=== PATIENT | male | born 1965 | race Caucasian/White ===

== ENCOUNTER 2016-10-09 08:26 | Inpatient (IN) | payer OTHER ==
[2016-10-09 10:26] VITALS: BMI 24.3
--- NOTE | 2016-10-09 13:42 | HP ---
CIWA Score - CIWA Score Nausea/Vomitin-Mild Nausea/No Vomiting Muscle Tremors: 4-Moderate,w/Arms Extend Anxiety: 4-Mod. Anxious/Guarded Agitation: 4-Moderately Restless Paroxysmal Sweats: 3 Orientation: 0-Oriented Tacttile Disturbances: 0-None Auditory Disturbances: 0-None Visual Disturbances: 0-None Headache: 1-Very Mild CIWA-Ar Total Score: 17 Admission ROS BHS - HPI Chief Complaint: I need to get cleaned. Allergies/Adverse Reactions: Allergies Allergy/AdvReac Type Severity Reaction Status Date / Time penicillin G Allergy Severe Rash Verified 10/09/16 10:10 History of Present Illness: pt is a 51yr old male with a history of alcohol and crack /cocaine dependence seeking detox for treatment. Exam Limitations: No Limitations - Ebola screening Have you traveled outside of the country in the last 21 days: No Have you had contact with anyone from an Ebola affected area: No Have you been sick,other than usual withdrawal symptoms: No - Review of Systems Constitutional: Chills, Diaphoresis, Loss of Appetite, Night Sweats, Unintentional Wgt. Loss EENT: reports: No Symptoms Reported, Tearing, Nose Congestion Respiratory: reports: Cough Cardiac: reports: No Symptoms Reported, Syncope GI: reports: Diarrhea, Nausea, Poor Appetite, Poor Fluid Intake, Vomiting : reports: No Symptoms Reported Musculoskeletal: reports: Back Pain, Joint Pain Integumentary: reports: Flushing, Sweating Neuro: reports: Headache, Tingling, Tremors Endocrine: reports: Excessive Sweating, Flushing, Intolerance to Cold, Intolerance to Heat Hematology: reports: No Symptoms Reported Psychiatric: reports: Judgement Intact, Mood/Affect Appropiate, Orientated x3, Agitated, Anxious Other Systems: Reviewed and Negative Patient History - Patient Medical History Hx Anemia: No Hx Asthma: Yes (albuterol) Hx Chronic Obstructive Pulmonary Disease (COPD): No Hx Cancer: No Hx Cardiac Disorders: No Hx Congestive Heart Failure: No Hx Hypertension: Yes (non compliant with meds.) Hx Hypercholesterolemia: No Hx Pacemaker: No HX Cerebrovascular Accident: No Hx Seizures: No Hx Dementia: No Hx Diabetes: No Hx Gastrointestinal Disorders: No Hx Liver Disease: No Hx Genitourinary Disorders: No Hx Sexually Transmitted Disorders: No Hx Renal Disease (ESRD): No Hx Thyroid Disease: No Hx Human Immunodeficiency Virus (HIV): No (NEGATIVE LAST 2012) Hx Hepatitis C: No (negative) Hx Depression: Yes Hx Suicide Attempt: No Hx Bipolar Disorder: No Hx Schizophrenia: No - Patient Surgical History Past Surgical History: No Hx Neurologic Surgery: No Hx Cataract Extraction: No Hx Cardiac Surgery: No Hx Lung Surgery: No Hx Breast Surgery: No Hx Breast Biopsy: No Hx Abdominal Surgery: No Hx Appendectomy: No Hx Cholecystectomy: No Hx Genitourinary Surgery: No Hx Section: No Hx Orthopedic Surgery: No Other Surgical History: skin tear to right knee 2weeks ago stitches were placed; not sure which hosp Anesthesia Reaction: No - PPD History Previous Implant?: Yes Documented Results: Negative w/o proof Implanted On Prior R Admission?: Yes Date: 09/20/15 PPD to be Administered?: Yes - Reproductive History Patient is a Female of Child Bearing Age (11 -55 yrs old): No - Smoking Cessation Smoking history: Current every day smoker Have you smoked in the past 12 months: Yes Aproximately how many cigarettes per day: 20 Hx Chewing Tobacco Use: No Initiated information on smoking cessation: Yes 'Breaking Loose' booklet given: 10/09/16 - Substance & Tx. History Hx Alcohol Use: No Substance Use Type: Alcohol, Cocaine Hx Substance Use Treatment: Yes - Substances Abused Alcohol Route: Oral Frequency: Daily Amount used: 1 qt vodka Age of first use: 8 Date of Last Use: 10/08/16 Crack Route: Smoking Frequency: 1-2 times per week Amount used: $20 Age of first use: 17 Date of Last Use: 10/07/16 Family Disease History - Family Disease History Family Disease History: Heart Disease: Father, Mother Admission Physical Exam [facility] - Vital Signs Vital Signs: Vital Signs - 24 hr 10/09/16 10:09 Temperature 97.4 F L Pulse Rate 122 H Respiratory 20 Rate Blood Pressure 173/86 - Physical General Appearance: Yes: Appropriately Dressed, Moderate Distress, Tremorous, Irritable, Sweating, Anxious HEENTM: Yes: Hearing grossly Normal, Normal ENT Inspection, Nasal Congestion, Rhinorrhea Respiratory: Yes: Lungs Clear, Normal Breath Sounds, No Respiratory Distress Neck: Yes: No masses,lesions,Nodules Breast: Yes: Within Normal Limits, Axillae without masses, No Discharge, Nipple discharge noted Cardiology: Yes: Regular Rhythm, Regular Rate, S1, S2 Abdominal: Yes: Normal Bowel Sounds, Non Tender, Soft Genitourinary: Yes: Within Normal Limits Back: Yes: Normal Inspection Musculoskeletal: Yes: full range of Motion, Gait Steady Extremities: Yes: Normal Capillary Refill, Normal Inspection, Non-Tender, Tremors Integumentary: Yes: Normal Color, Diaphoresis Lymphatic: Yes: Within Normal Limits - Diagnostic (1) Nicotine dependence Current Visit: Yes Status: Chronic Qualifiers: Nicotine product type: cigarettes Substance use status: uncomplicated Qualified Code(s): F17.210 - Nicotine dependence, cigarettes, uncomplicated (2) Alcohol dependence with uncomplicated withdrawal Current Visit: Yes Status: Chronic (3) Cocaine dependence Current Visit: Yes Status: Chronic Qualifiers: Complication of substance-induced condition: uncomplicated (4) Essential hypertension Current Visit: Yes Status: Chronic (5) Asthma Current Visit: Yes Status: Acute (6) Abrasion, right knee, initial encounter Current Visit: Yes Status: Acute Qualifiers: Encounter type: initial encounter Qualified Code(s): S80.211A - Abrasion, right knee, initial encounter Comment: pt states recieved stitches about 2weeks ago most of the stiches has disolved, only two-three remain. however, skin is healed and wound closed. no s/ s of infection Cleared for Admission [facility] - Detox or Rehab [facility] Level of Care: Medically Managed Detox Regimen/Protocol: Librium [facility] Breath Alcohol Content Breath Alcohol Content: 0 Urine Drug Screen - Results Drug Screen Negative: No Urine Drug Screen Results: URMILA-Cocaine, BZO-Benzodiazepines
[2016-10-09] MEDS ORDERED: MENTHOL/PHENOL 1 EACH UD MM PRN (13:49)
[2016-10-09] MEDS ORDERED: guaiFENesin/D-METHORPHAN HB 10 ML UNIT-DOSE CUPS PO PRN (13:49)
[2016-10-09] MEDS ORDERED: diphenhydrAMINE HCL 50 MG CAPSULE PO PRN (13:49)
[2016-10-09] MEDS ORDERED: P-EPHED 60MG/TRIPROLIDI 2.5MG TABLET PO PRN (13:49)
[2016-10-09] MEDS ORDERED: IBUPROFEN 400 MG TABLET (FP) PO PRN (13:49)
[2016-10-09] MEDS ORDERED: MAGNESIUM CITRATE 300 ML BOTTLE PO PRN (13:49)
[2016-10-09] MEDS ORDERED: NICOTINE POLACRILEX 4 MG GUM BUC PRN (13:49)
[2016-10-09] MEDS ORDERED: MAGNESIUM HYDROX 2400MG/30ML ORAL SUSPENSION 30 ML CUP PO PRN (13:49)
[2016-10-09] MEDS ORDERED: hydrOXYzine PAMOATE 50 MG CAPSULE (FP) PO PRN (13:49)
[2016-10-09] MEDS ORDERED: MAG HYDROX/AL HYDROX/SIMETH 30 ML UNIT-DOSE CUP PO PRN (13:49)
[2016-10-09] MEDS ORDERED: ACETAMINOPHEN 325 MG TABLET (FP) PO PRN (13:49)
[2016-10-09] MEDS ORDERED: chlordiazePOXIDE HCL 25 MG CAPSULE PO PRN (13:49)
[2016-10-09] MEDS ORDERED: LOPERAMIDE HCL 2 MG CAPSULE PO PRN (13:49)
[2016-10-09] MEDS ORDERED: ALBUTEROL SO4 6.7 GM HFA INHALER IH PRN (13:50)
[2016-10-09] MEDS ORDERED: chlordiazePOXIDE HCL 25 MG CAPSULE PO ONE (14:02)
[2016-10-09] MEDS: amLODIPine BESYLATE 10 MG TABLET (FP) PO SCH (14:18)
[2016-10-09] MEDS: BACITRACIN 0.9 GM PACKET TP SCH ×2 (14:18→22:30)
[2016-10-09 15:00] LABS: HIV 1 & 2 AB NEGATIVE; HIV 1 AGp24 NEGATIVE
[2016-10-09] MEDS: chlordiazePOXIDE HCL 25 MG CAPSULE PO SCH ×3 (18:21→22:30)
[2016-10-09 20:50] LABS: URINE APPEARANCE CLEAR; URINE BILIRUBIN NEGATIVE (NEGATIVE); URINE BLOOD NEGATIVE (NEGATIVE); URINE COLOR YELLOW; URINE GLUCOSE (UA) NEGATIVE (NEGATIVE); URINE KETONE TRACE (NEGATIVE); URINE LEUK ESTERASE NEGATIVE (NEGATIVE); URINE NITRITE NEGATIVE (NEGATIVE); URINE UROBILINOGEN NEGATIVE E.U./dl (0.2-1.0)
[2016-10-09 20:56] LABS: URINE PROTEIN 1+ (NEGATIVE)
[2016-10-09 21:06] LABS: URINE BACTERIA RARE /hpf (NONE SEEN); URINE HYALINE CAST 2 /lpf; URINE MUCUS RARE; URINE RBC 2 /hpf (0-3); URINE WBC <1 /hpf (3-5)
[2016-10-09] MEDS ORDERED: THIAMINE HCL 100 MG TABLET (FP) PO SCH (22:00)
[2016-10-10] MEDS: chlordiazePOXIDE HCL 25 MG CAPSULE PO SCH ×2 (06:19→10:30)
[2016-10-10 09:46] VITALS: BP 148/102; PULSE 117; TEMP 97.9
[2016-10-10] MEDS ORDERED: PRENATAL VITAMINS W/ FOLIC ACID TABLET (FP) PO SCH (10:00)
[2016-10-10] MEDS ORDERED: NICOTINE 21 MG/24 HOURS TOPICAL PATCH TD SCH (10:00)
[2016-10-10 10:10] LABS: MCH 29.7 pg (25.7-33.7); MCHC 31.8 g/dl (32.0-35.9); MEAN CELL VOLUME 93.6 fl (80-96); MEAN PLT VOLUME 8.3 fl (7.5-11.1); PLATELET COUNT 269 K/MM3 (134-434); RDW 15.7 % (11.9-15.9)
--- NOTE | 2016-10-10 10:13 | EKG ---
Test Reason : Blood Pressure : / mmHG Vent. Rate : 103 BPM Atrial Rate : 103 BPM P-R Int : 152 ms QRS Dur : 086 ms QT Int : 366 ms P-R-T Axes : 051 056 058 degrees QTc Int : 479 ms SINUS TACHYCARDIA SEPTAL INFARCT , AGE UNDETERMINED POOR R WAVE PROGRESSION ABNORMAL ECG NO PREVIOUS ECGS AVAILABLE Confirmed by RUBENS RUSSELL MD ([id number]) on 10/10/2016 10:12:35 AM Referred By: Gage Capps Confirmed By:RUBENS RUSSELL MD
[2016-10-10 10:20] LABS: ALBUMIN 3.8 g/dl (3.4-5.0); ALK PHOS 115 U/L (45-117); ANION GAP 12 (8-16); BILIRUBIN,TOTAL 0.9 mg/dL (0.2-1.0); CALCIUM 8.6 mg/dL (8.5-10.1); CO2 28 mmol/L (21-32); CREATININE 0.9 mg/dL (0.7-1.3); GLUCOSE,RANDOM 168 mg/dL (74-106); SGOT/AST 79 U/L (15-37); SGPT/ALT 66 U/L (12-78); TOT PROT 8.7 g/dl (6.4-8.2)
[2016-10-10] MEDS: BACITRACIN 0.9 GM PACKET TP SCH (10:30)
[2016-10-10] MEDS: amLODIPine BESYLATE 10 MG TABLET (FP) PO SCH (10:30)
--- NOTE | 2016-10-10 10:46 | PN ---
S CIWA - CIWA Score Nausea/Vomitin Muscle Tremors: 3 Anxiety: 2 Agitation: 3 Paroxysmal Sweats: 1-Minimal Palms Moist Orientation: 0-Oriented Tacttile Disturbances: 1-Very Mild Itch/Numbness Auditory Disturbances: 2-Mild Harshness/Frighten Visual Disturbances: 1-Very Mild Sensitivity Headache: 1-Very Mild CIWA-Ar Total Score: 16 BHS Progress Note (SOAP) Objective: 10/10/16 10:46 Vital Signs - 24 hr 10/09/16 10/09/16 10/09/16 15:02 17:54 22:50 Temperature 98.4 F 98.1 F 97.7 F Pulse Rate 112 H 118 H 110 H Respiratory 18 20 20 Rate Blood Pressure 170/123 156/100 149/100 10/10/16 10/10/16 10/10/16 00:30 03:30 06:47 Temperature 97.4 F L Pulse Rate 100 H Respiratory 18 18 20 Rate Blood Pressure 146/103 10/10/16 09:45 Temperature 97.9 F Pulse Rate 117 H Respiratory 20 Rate Blood Pressure 148/102 Laboratory Tests 10/09/16 10/09/16 10/10/16 12:10 19:00 06:00 WBC 8.0 RBC 4.45 Hgb 13.2 Hct 41.6 MCV 93.6 MCHC 31.8 L RDW 15.7 Plt Count 269 D MPV 8.3 Sodium Potassium Chloride Carbon Dioxide Anion Gap BUN Creatinine Creat Clearance w eGFR Random Glucose Calcium Total Bilirubin AST ALT Alkaline Phosphatase Total Protein Albumin Urine Color Yellow Urine Appearance Clear Urine pH 8.0 Ur Specific [place] 1.015 Urine Protein 1+ H Urine Glucose (UA) Negative Urine Ketones Trace H Urine Blood Negative Urine Nitrite Negative Urine Bilirubin Negative Urine Urobilinogen Negative Ur Leukocyte Esterase Negative Urine RBC 2 Urine WBC <1 Urine Bacteria Rare Hyaline Casts 2 Urine Mucus Rare HIV 1&2 Antibody Screen Negative HIV P24 Antigen Negative 10/10/16 06:00 WBC RBC Hgb Hct MCV MCHC RDW Plt Count MPV Sodium 139 Potassium 3.7 Chloride 99 Carbon Dioxide 28 Anion Gap 12 BUN 12 Creatinine 0.9 Creat Clearance w eGFR > 60 Random Glucose 168 H D Calcium 8.6 Total Bilirubin 0.9 AST 79 H D ALT 66 D Alkaline Phosphatase 115 Total Protein 8.7 H D Albumin 3.8 D Urine Color Urine Appearance Urine pH Ur Specific [place] Urine Protein Urine Glucose (UA) Urine Ketones Urine Blood Urine Nitrite Urine Bilirubin Urine Urobilinogen Ur Leukocyte Esterase Urine RBC Urine WBC Urine Bacteria Hyaline Casts Urine Mucus HIV 1&2 Antibody Screen HIV P24 Antigen Assessment: 10/10/16 10:46 ongoing withdrawal Plan: continue detox protocol
--- NOTE | 2016-10-10 11:52 | CONSULT ---
[facility] Psychiatric Consult - Data Date of interview: 10/10/16 Admission source: [facility] Identifying data: Readmission to [facility] for this 51 y/o male seeking detox treatment on for alcohol,cocaine and benzodiazepine (xanax ) dependence.Patient is single,a father of one,homeless,unemployed and reportedly deprived of any source of income. Substance Abuse History: - Smoking Cessation. Smoking history: Current every day smoker. Have you smoked in the past 12 months: Yes. Aproximately how many cigarettes per day: 20. Hx Chewing Tobacco Use: No. Initiated information on smoking cessation: Yes. 'Breaking Loose' booklet given: 10/09/16. - Substance & Tx. History. Hx Alcohol Use: No. Substance Use Type: Alcohol, Cocaine. Hx Substance Use Treatment: Yes. - Substances Abused. Alcohol. Route: Oral. Frequency: Daily. Amount used: 1 qt vodka. Age of first use: 8. Date of Last Use: 10/08/16. Crack. Route: Smoking. Frequency: 1-2 times per week. Amount used: $20. Age of first use: 17. Date of Last Use: 10/07/16. Discussed with the patient in my interview.He confirmed these patterns of abuse. Medical History: Significant for a history of bronchial asthma and hypertension. Psychiatric History: Patient denies history of psychiatric hospitalizations.Mr Saucedo reports chronic insomnia.No history of suicide attempts. Physical/Sexual Abuse/Trauma History: Patient denies. Additional Comment: Urine Drug Screen Results: URMILA-Cocaine, BZO- Benzodiazepines.Reports is noted. Mental Status Exam - Mental Status Exam Alert and Oriented to: Time, Place, Person Cognitive Function: Good Patient Appearance: Unkempt, Disheveled Mood: Irritable Affect: Appropriate, Normal Range Patient Behavior: Sedated, Fatigued, Cooperative Speech Pattern: Clear Voice Loudness: Normal Thought Process: Goal Oriented Thought Disorder: Not Present Hallucinations: Denies Suicidal Ideation: Denies Homicidal Ideation: Denies Insight/Judgement: Poor Sleep: Poorly, Difficulty falling asleep (wants zolpidem) Appetite: Good Muscle strength/Tone: Normal Gait/Station: Normal Psychiatric Findings - Problem List ([place] 1, 2,3) (1) Alcohol dependence with uncomplicated withdrawal Current Visit: Yes Status: Acute (2) Cocaine dependence Current Visit: Yes Status: Acute Qualifiers: Complication of substance-induced condition: uncomplicated (3) Nicotine dependence Current Visit: Yes Status: Acute Qualifiers: Nicotine product type: cigarettes Substance use status: uncomplicated Qualified Code(s): F17.210 - Nicotine dependence, cigarettes, uncomplicated (4) Uncomplicated sedative, hypnotic or anxiolytic withdrawal Current Visit: Yes Status: Acute (5) Essential hypertension Current Visit: Yes Status: Chronic (6) Insomnia Current Visit: Yes Status: Acute - Initial Treatment Plan Initial Treatment Plan: Psychoeducation.Detoxification.Zolpidem 5 mg po hs prn.Side effects/benefits discussed with patient.He agrees with plan.
--- NOTE | 2016-10-10 12:58 | PN ---
S Progress Note Note: pt states he is leaving because he wants to smoke cigarettes. pt signed out AMA.
--- NOTE | 2016-10-10 12:59 | DS ---
[facility] Detox Discharge Summary Admission Date: 10/09/16 Discharge Date: 10/10/16 (pt refused to stay wants to smoke cigarettes) - History Present History: Alcohol Dependence, Cocaine Dependence, Sedative Dependence - Physical Exam Results Vital Signs: Vital Signs Temperature 97.9 F 10/10/16 09:45 Pulse Rate 117 H 10/10/16 09:45 Respiratory Rate 20 10/10/16 09:45 Blood Pressure 148/102 10/10/16 09:45 O2 Sat by Pulse Oximetry (%) - Medication Discharge Medications: Ambulatory Orders Albuterol Sulfate Inhaler - [Ventolin Hfa Inhaler -] 2 inh PO Q4H PRN 10/09/16 Amlodipine Besylate [Norvasc -] 10 mg PO DAILY 10/09/16 - Diagnosis (1) Nicotine dependence Current Visit: Yes Status: Chronic Qualifiers: Nicotine product type: cigarettes Substance use status: uncomplicated Qualified Code(s): F17.210 - Nicotine dependence, cigarettes, uncomplicated (2) Alcohol dependence with uncomplicated withdrawal Current Visit: Yes Status: Chronic (3) Cocaine dependence Current Visit: Yes Status: Chronic Qualifiers: Complication of substance-induced condition: uncomplicated (4) Essential hypertension Current Visit: Yes Status: Chronic (5) Asthma Current Visit: Yes Status: Chronic (6) Abrasion, right knee, initial encounter Current Visit: Yes Status: Acute Qualifiers: Encounter type: initial encounter Qualified Code(s): S80.211A - Abrasion, right knee, initial encounter - AMA Did Patient Leave Against Medical Advice: Yes
[2016-10-10] MEDS ORDERED: chlordiazePOXIDE HCL 25 MG CAPSULE PO SCH (17:00)
[2016-10-10] MEDS ORDERED: ZOLPIDEM TARTRATE 5 MG TABLET PO PRN (22:00)
[2016-10-11] MEDS ORDERED: chlordiazePOXIDE 5 MG CAPSULE PO SCH (17:00)
[2016-10-12] MEDS ORDERED: chlordiazePOXIDE HCL 10 MG CAPSULE PO SCH (17:00)
== END 2016-10-10 12:51 | disposition left against medical advice (07) | DRG 770 ==
LOC: YASAS 08:26 → Y6N 11:02
PROVIDERS: ADMIT Internal Medicine Addiction Medicine; ATTEND Internal Medicine Addiction Medicine
PROC: HZ2ZZZZ Detoxification Services for Substance Abuse Treatment (ICD-10-PCS; principal; 2016-10-09)
DX: F10.230 Alcohol dependence with withdrawal, uncomplicated (principal); F14.20 Cocaine dependence, uncomplicated; F13.20 Sedative, hypnotic or anxiolytic dependence, uncomplicated; F17.210 Nicotine dependence, cigarettes, uncomplicated; I10 Essential (primary) hypertension; J45.909 Unspecified asthma, uncomplicated; G47.00 Insomnia, unspecified; S80.211D Abrasion, right knee, subsequent encounter; X58.XXXD Exposure to other specified factors, subsequent encounter; Z91.14 Patient's other noncompliance with medication regimen
CPT/HCPCS: 36415; 80053; 81003; 81015; 85027; 86593; 87389; 93005; 93010

== ENCOUNTER 2018-04-12 13:44 | Inpatient (IN) | payer OTHER ==
[2018-04-12 13:58] VITALS: BMI 23.1
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
[2018-04-12] MEDS ORDERED: ALBUTEROL SO4 8 GM HFA INHALER IH PRN (19:11)
[2018-04-12] MEDS ORDERED: ACETAMINOPHEN 325 MG TABLET (FP) PO PRN (19:12)
[2018-04-12] MEDS ORDERED: IBUPROFEN 400 MG TABLET (FP) PO PRN (19:12)
[2018-04-12] MEDS ORDERED: chlordiazePOXIDE HCL 25 MG CAPSULE PO ONE (19:12)
[2018-04-12] MEDS ORDERED: LOPERAMIDE HCL 2 MG CAPSULE PO PRN (19:12)
[2018-04-12] MEDS ORDERED: chlordiazePOXIDE HCL 25 MG CAPSULE PO PRN (19:12)
[2018-04-12] MEDS ORDERED: MAG HYDROX/AL HYDROX/SIMETH 30 ML UNIT-DOSE CUP PO PRN (19:12)
[2018-04-12] MEDS ORDERED: guaiFENesin/D-METHORPHAN HB 10 ML UNIT-DOSE CUPS PO PRN (19:12)
[2018-04-12] MEDS ORDERED: NICOTINE POLACRILEX 2 MG GUM BC PRN (19:12)
[2018-04-12] MEDS ORDERED: MAGNESIUM HYDROX 2400MG/30ML ORAL SUSPENSION 30 ML CUP PO PRN (19:12)
[2018-04-12] MEDS ORDERED: P-EPHED 60MG/TRIPROLIDI 2.5MG TABLET PO PRN (19:12)
[2018-04-12] MEDS ORDERED: MENTHOL/PHENOL 1 EACH UD MM PRN (19:12)
[2018-04-12] MEDS ORDERED: hydrOXYzine PAMOATE 50 MG CAPSULE (FP) PO PRN (19:12)
[2018-04-12] MEDS ORDERED: MAGNESIUM CITRATE 300 ML BOTTLE PO PRN (19:12)
[2018-04-12] MEDS ORDERED: ALBUTEROL SO4 2.5/IPRATROPIUM 0.5 INH SOL 3 ML VIAL.NEB. NEB PRN (19:15)
[2018-04-12] MEDS: amLODIPine BESYLATE 10 MG TABLET (FP) PO SCH (20:32)
[2018-04-12] MEDS ORDERED: cloNIDine HCL 0.1 MG TABLET PO ONE (21:00)
[2018-04-12] MEDS ORDERED: MELATONIN 5 MG TABLETS PO PRN (22:00)
[2018-04-12] MEDS ORDERED: THIAMINE HCL 100 MG TABLET (FP) PO SCH (22:00)
[2018-04-12] MEDS ORDERED: LIDOCAINE PATCH REMOVAL MC SCH (22:00)
[2018-04-12] MEDS: chlordiazePOXIDE HCL 25 MG CAPSULE PO SCH (23:29)
[2018-04-12] MEDS: CYCLOBENZAPRINE HCL 5 MG TABLET PO SCH (23:29)
[2018-04-13 01:56] LABS: URINE APPEARANCE CLEAR; URINE BILIRUBIN NEGATIVE (<2.0 mg/dL); URINE COLOR YELLOW; URINE GLUCOSE (UA) NEGATIVE (NEGATIVE); URINE KETONE NEGATIVE (NEGATIVE); URINE LEUK ESTERASE NEGATIVE (NEGATIVE); URINE NITRITE NEGATIVE (NEGATIVE); URINE PROTEIN NEGATIVE (NEGATIVE); URINE UROBILINOGEN NEGATIVE mg/dL (0.2-1.0)
[2018-04-13] MEDS: chlordiazePOXIDE HCL 25 MG CAPSULE PO SCH ×2 (05:19→10:43)
[2018-04-13] MEDS: CYCLOBENZAPRINE HCL 5 MG TABLET PO SCH (05:20)
[2018-04-13] MEDS ORDERED: cloNIDine HCL 0.1 MG TABLET PO ONE (07:27)
[2018-04-13 09:56] VITALS: BP 145/104; PULSE 110; TEMP 97.1
[2018-04-13] MEDS ORDERED: NICOTINE 14 MG/24 HOURS TOPICAL PATCH TD SCH (10:00)
[2018-04-13] MEDS ORDERED: PRENATAL VITAMINS W/ FOLIC ACID TABLET (FP) PO SCH (10:00)
[2018-04-13] MEDS ORDERED: LIDOCAINE 5% TOPICAL PATCH TP SCH (10:00)
[2018-04-13] MEDS: amLODIPine BESYLATE 10 MG TABLET (FP) PO SCH (10:43)
[2018-04-13 10:55] LABS: HEMATOCRIT 41.5 % (35.4-49); HEMOGLOBIN 14.1 GM/dL (11.7-16.9); MCH 32.8 pg (25.7-33.7); MCHC 33.9 g/dl (32.0-35.9); MEAN CELL VOLUME 96.8 fl (80-96); MEAN PLT VOLUME 7.7 fl (7.5-11.1); PLATELET COUNT 234 K/MM3 (134-434); RBC 4.29 M/mm3 (4.00-5.60); RDW 15.5 % (11.9-15.9)
[2018-04-13 10:57] LABS: ANION GAP 5 (8-16); BLOOD UREA NITROGEN 10 mg/dL (7-18); CALCIUM 9.1 mg/dL (8.5-10.1); CHLORIDE 102 mmol/L (98-107); CO2 34 mmol/L (21-32); CREATININE 0.9 mg/dL (0.7-1.3); GLUCOSE,RANDOM 107 mg/dL (74-106); POTASSIUM 4.3 mmol/L (3.5-5.1); SGOT/AST 37 U/L (15-37); SGPT/ALT 47 U/L (12-78); SODIUM 141 mmol/L (136-145)
[2018-04-13 10:59] LABS: ALK PHOS 102 U/L (45-117); BILIRUBIN,TOTAL 0.6 mg/dL (0.2-1.0); TOT PROT 6.7 g/dl (6.4-8.2)
--- NOTE | 2018-04-13 11:38 | DS ---
[facility] Detox Discharge Summary Admission Date: 04/12/18 Discharge Date: 04/13/18 - History Present History: Alcohol Dependence Additional Comments: 52 years old male admitted on 04/12/18 for alcohol withdrawal sx insists to leave the detox unit "no ready" to be sober patient wants to go home and resume alcohol health teaching on risks of alcohol related health issues discuss strategies remain sober with community support groups and meetings - Physical Exam Results Vital Signs: Vital Signs Temperature 97.1 F L 04/13/18 09:54 Pulse Rate 110 H 04/13/18 09:54 Respiratory Rate 16 04/13/18 09:54 Blood Pressure 145/104 04/13/18 09:54 O2 Sat by Pulse Oximetry (%) Pertinent Admission Physical Exam Findings: alcohol withdrawal sx Vital Signs Temperature 97.1 F L 04/13/18 09:54 Pulse Rate 110 H 04/13/18 09:54 Respiratory Rate 16 04/13/18 09:54 Blood Pressure 145/104 04/13/18 09:54 O2 Sat by Pulse Oximetry (%) Laboratory Last Values WBC 5.0 K/mm3 (4.0-10.0) 04/13/18 07:00 RBC 4.29 M/mm3 (4.00-5.60) 04/13/18 07:00 Hgb 14.1 GM/dL (11.7-16.9) 04/13/18 07:00 Hct 41.5 % (35.4-49) 04/13/18 07:00 MCV 96.8 fl (80-96) H 04/13/18 07:00 MCH 32.8 pg (25.7-33.7) D 04/13/18 07:00 MCHC 33.9 g/dl (32.0-35.9) 04/13/18 07:00 RDW 15.5 % (11.9-15.9) 04/13/18 07:00 Plt Count 234 K/MM3 (134-434) 04/13/18 07:00 MPV 7.7 fl (7.5-11.1) 04/13/18 07:00 Sodium 141 mmol/L (136-145) 04/13/18 07:00 Potassium 4.3 mmol/L (3.5-5.1) 04/13/18 07:00 Chloride 102 mmol/L (98-107) 04/13/18 07:00 Carbon Dioxide 34 mmol/L (21-32) H D 04/13/18 07:00 Anion Gap 5 (8-16) L 04/13/18 07:00 BUN 10 mg/dL (7-18) 04/13/18 07:00 Creatinine 0.9 mg/dL (0.7-1.3) 04/13/18 07:00 Creat Clearance w eGFR > 60 (>60) 04/13/18 07:00 Random Glucose 107 mg/dL (74-106) H D 04/13/18 07:00 Calcium 9.1 mg/dL (8.5-10.1) 04/13/18 07:00 Total Bilirubin 0.6 mg/dL (0.2-1.0) 04/13/18 07:00 AST 37 U/L (15-37) D 04/13/18 07:00 ALT 47 U/L (12-78) D 04/13/18 07:00 Alkaline Phosphatase 102 U/L (45-117) 04/13/18 07:00 Total Protein 6.7 g/dl (6.4-8.2) 04/13/18 07:00 Albumin 3.0 g/dl (3.4-5.0) L 04/13/18 07:00 Urine Color Yellow 04/12/18 22:01 Urine Appearance Clear 04/12/18 22:01 Urine pH 5.0 (5.0-8.0) D 04/12/18 22:01 Ur Specific [place] 1.013 (1.001-1.035) 04/12/18 22:01 Urine Protein Negative (NEGATIVE) 04/12/18 22:01 Urine Glucose (UA) Negative (NEGATIVE) 04/12/18 22:01 Urine Ketones Negative (NEGATIVE) 04/12/18 22:01 Urine Blood Negative (NEGATIVE) 04/12/18 22:01 Urine Nitrite Negative (NEGATIVE) 04/12/18 22:01 Urine Bilirubin Negative (<2.0 mg/dL) 04/12/18 22:01 Urine Urobilinogen Negative mg/dL (0.2-1.0) 04/12/18 22:01 Ur Leukocyte Esterase Negative (NEGATIVE) 04/12/18 22:01 HIV 1&2 Antibody Screen Negative 04/13/18 07:00 HIV P24 Antigen Negative 04/13/18 07:00 lab noted - Treatment Hospital Course: Detox Protocol Followed, Responded well Patient has Accepted a Rehab Referral to: [facility] - Medication Discharge Medications: Ambulatory Orders Albuterol Sulfate Inhaler - [Ventolin Hfa Inhaler -] 2 inh PO Q4H PRN 10/09/16 Amlodipine Besylate [Norvasc -] 10 mg PO DAILY 10/09/16 - Diagnosis (1) Essential hypertension Current Visit: Yes Status: Chronic (2) Asthma Current Visit: Yes Status: Chronic (3) Alcohol dependence with uncomplicated withdrawal Current Visit: Yes Status: Acute (4) Nicotine dependence Current Visit: Yes Status: Acute Qualifiers: Nicotine product type: cigarettes Substance use status: in withdrawal Qualified Code(s): F17.213 - Nicotine dependence, cigarettes, with withdrawal - AMA Did Patient Leave Against Medical Advice: Yes
--- NOTE | 2018-04-13 12:47 | CONSULT ---
[facility] Psychiatric Consult - Data Date of interview: 04/13/18 Admission source: [facility] Identifying data: Not found for psychiatric evaluation.Mr Saucedo left earlier without seeing the psychiatrist.Refer to staff's notes for details.
--- NOTE | 2018-04-13 17:06 | EKG ---
Test Reason : Blood Pressure : / mmHG Vent. Rate : 112 BPM Atrial Rate : 112 BPM P-R Int : 144 ms QRS Dur : 086 ms QT Int : 364 ms P-R-T Axes : 073 065 052 degrees QTc Int : 496 ms SINUS TACHYCARDIA BIATRIAL ENLARGEMENT LEFT VENTRICULAR HYPERTROPHY CANNOT RULE OUT SEPTAL INFARCT (CITED ON OR BEFORE 09-OCT-2016) ABNORMAL ECG WHEN COMPARED WITH ECG OF 09-OCT-2016 14:50, NO SIGNIFICANT CHANGE WAS FOUND Confirmed by MD Carlton, Darvin ([id number]) on 04/13/2018 5:06:08 PM Referred By: Confirmed By:Darvin Vincent MD
[2018-04-13] MEDS ORDERED: chlordiazePOXIDE HCL 25 MG CAPSULE PO SCH (23:00)
[2018-04-14] MEDS ORDERED: chlordiazePOXIDE 5 MG CAPSULE PO SCH (23:00)
[2018-04-15] MEDS ORDERED: chlordiazePOXIDE HCL 10 MG CAPSULE PO SCH (23:00)
== END 2018-04-13 11:38 | disposition left against medical advice (07) | DRG 770 ==
LOC: YASAS 13:44 → Y6N 17:19
PROVIDERS: ADMIT Surgery; ATTEND Surgery
PROC: HZ2ZZZZ Detoxification Services for Substance Abuse Treatment (ICD-10-PCS; principal; 2018-04-12)
DX: F10.230 Alcohol dependence with withdrawal, uncomplicated (principal); F13.230 Sedative, hypnotic or anxiolytic dependence with withdrawal, uncomplicated; F14.20 Cocaine dependence, uncomplicated; F12.20 Cannabis dependence, uncomplicated; F17.213 Nicotine dependence, cigarettes, with withdrawal; I10 Essential (primary) hypertension; J45.909 Unspecified asthma, uncomplicated
CPT/HCPCS: 36415; 80053; 81003; 85027; 86593; 87389; 93005; 93010; J0735